=== PATIENT | female | born 1950 | race Two or more races ===

== ENCOUNTER 2017-09-30 11:08 | Emergency (ER) | payer MEDICARE, BC ==
[~2017-09-30] VITALS: Ht 154.9 cm; Wt 65.8 kg
--- NOTE | 2017-09-30 11:10 | NUR ---
LUZ C/O DIZZINESS S/P TRIP AND FALL WHILE JOGGING. LEFT KNEE ABRASION, DENIES LOC. A/OX 4, BREATHING EVEN AND UNLABORED. NO SOB, NAD, VITALS STABLE. SAFETY AND COMFORT MEASURES IN PLACE. AWAITING MD ORDERS.
--- NOTE | 2017-09-30 11:15 | NUR ---
NEW IV STARTED ON LAC, 20G. BLOOD DRAWN AND SENT TO LAB.
[2017-09-30] MEDS ORDERED: ONDANSETRON HCL/PF 4 MG/2 ML VIAL ONE (11:25)
[2017-09-30] MEDS ORDERED: ONDANSETRON HCL/PF 4 MG/2 ML VIAL IVP ONE (11:30)
[2017-09-30] MEDS ORDERED: IV NS 0.9% 1,000 ML BAG IV ONE (11:30)
--- NOTE | 2017-09-30 11:35 | NUR ---
[facility]RECTIONAL FACILITY PSYCHIATRIST AT BEDSIDE .
[2017-09-30 11:39] LABS: BASOPHILS % (AUTO) 0.7 % (0.0-2.0); EOSINOPHILS % (AUTO) 0.7 % (0.0-6.0); HEMATOCRIT 43 % (33-45); HEMOGLOBIN 14.9 g/dL (11.5-14.8); LYMPHOCYTES # (AUTO) 1.9 /CMM (0.8-4.8); LYMPHOCYTES % (AUTO) 31.6 % (20.0-44.0); MEAN CORPUSCULAR HEMOGLOBIN 31 PG (26.0-33.0); MEAN CORPUSCULAR HGB CONC 35 g/dl (31.0-36.0); MEAN CORPUSCULAR VOLUME 90 fL (82-100); MONOCYTES # (AUTO) 0.3 /CMM (0.1-1.30); MONOCYTES % (AUTO) 5.2 % (2.0-12.0); NEUTROPHILS # (AUTO) 3.9 /CMM (1.8-8.9); NEUTROPHILS % (AUTO) 61.8 % (43.0-81.0); RDW COEFFICIENT OF VARIATION 11.9 (11.5-15.0); RED BLOOD CELL COUNT(AUTO) 4.78 MIL/uL (4.0-5.2); WHITE BLOOD COUNT (AUTO) 6.1 K/uL (4.3-11.0)
[2017-09-30 11:43] LABS: PLATELET COUNT (AUTO) 170 /CMM (150-450)
[2017-09-30 11:46] LABS: CALCIUM, SERUM 9.4 mg/dL (8.5-10.1); CARBON DIOXIDE 28 mmol/L (21-32); CHLORIDE 106 mmol/L (98-107); CREATININE 0.8 mg/dL (0.6-1.3); GLUCOSE 136 mg/dL (74-106); POTASSIUM 4.3 mmol/L (3.5-5.1); SODIUM SERUM 139 mmol/L (136-145); UREA NITROGEN, BLOOD 18 mg/dL (7-18)
[2017-09-30 11:55] LABS: TROPONIN I < 0.017 ng/mL (0.00-0.056)
[2017-09-30 12:44] VITALS: BP 132/80
--- NOTE | 2017-09-30 12:44 | NUR ---
Patient discharged to home in stable condition. Written and verbal after care instructions given. Patient verbalizes understanding of instruction.IV removed. Catheter intact and site benign. Pressure and 4x4 applied to site. No bleeding noted.
== END 2017-09-30 12:44 | disposition home or self-care (01) ==
LOC: ER 11:10
DX: T67.5XXA Heat exhaustion, unspecified, initial encounter (principal); S80.212A Abrasion, left knee, initial encounter; W01.0XXA Fall on same level from slipping, tripping and stumbling without subsequent striking against object, initial encounter; Y93.89 Activity, other specified; Y92.89 Other specified places as the place of occurrence of the external cause; Y99.8 Other external cause status
CPT/HCPCS: 36415; 71045; 80048; 84484; 85025; 93005; 96361; 96374; 99285; A4606; J2405; J7030; Z7610